=== PATIENT | female | born 2000 | race African-American/Black ===

== ENCOUNTER 2024-11-13 10:01 | Emergency (ER) | payer SELFPAY ==
[~2024-11-13] VITALS: Ht 165.1 cm; Wt 123.9 kg
[2024-11-13] MEDS: SODIUM CHLORIDE 0.9% 1000ML 1,000 ML IV ONE (11:05)
[2024-11-13] MEDS: ACETAMINOPHEN 325 MG TAB PO ONE (11:06)
[2024-11-13] MEDS ORDERED: CEFTRIAXONE 1 GM VIAL IV ONE (12:00)
[2024-11-13 12:26] VITALS: PULSE 105; RESP 18; TEMP 99.5; O2SAT 98
[2024-11-13] MEDS ORDERED: ONDANSETRON ODT4 MG PO (12:51)
[2024-11-13] MEDS ORDERED: CEPHALEXIN500 M1 PO (12:51)
[2024-11-13] MEDS ORDERED: IBUPROFEN800 MG PO (12:51)
== END 2024-11-13 13:00 | disposition home or self-care (01) ==
LOC: FSED 10:04
DX: R50.9 Fever, unspecified (principal); N39.0 Urinary tract infection, site not specified; B34.9 Viral infection, unspecified; R05.9 Cough, unspecified; R51.9 Headache, unspecified; M54.50 Low back pain, unspecified; R11.2 Nausea with vomiting, unspecified; Z11.52 Encounter for screening for COVID-19
CPT/HCPCS: 0223U; 80048; 80076; 81003; 81025; 83518; 85025; 87400; 99284; J0696; J7030

== ENCOUNTER 2024-11-20 14:49 | Emergency (ER) | payer SELFPAY ==
[~2024-11-20] VITALS: Ht 165.1 cm; Wt 122.1 kg
[~2024-11-20 14:49] MED LIST: CEPHALEXIN500 M1 PO; IBUPROFEN800 MG PO; ONDANSETRON ODT4 MG PO
[2024-11-20 15:03] VITALS: TEMP 98.6
[2024-11-20 15:49] VITALS: PULSE 103; RESP 16
[2024-11-20] MEDS ORDERED: NYSTATIN100000 UNI PO (15:49)
[2024-11-20 15:54] VITALS: BP 136/94; O2SAT 96
== END 2024-11-20 15:58 | disposition home or self-care (01) ==
LOC: FSED 15:47
DX: R05.9 Cough, unspecified (principal); B37.81 Candidal esophagitis; B37.0 Candidal stomatitis
CPT/HCPCS: 99283